=== PATIENT | male | born 1965 | race Caucasian/White ===

== ENCOUNTER 2017-08-11 11:19 | Emergency (ER) | payer OTHER ==
[2017-08-11 11:19] VITALS: BMI 33.9
[2017-08-11 11:46] VITALS: RESP 18
--- NOTE | 2017-08-11 12:17 | ED PDOC ---
Arrival/HPI - General Chief Complaint: Back Pain Time Seen by Provider: 08/11/17 12:02 Historian: Patient - History of Present Illness Narrative History of Present Illness (Text): 08/11/17 12:34 A 52 year old male, whose past medical history includes Diabetes (on Insulin), presents to the emergency department complaining of left sided neck pain, left shoulder and back pain for the past week, worsening the last 4 days. Reports pain worsens with movement or turning. 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 Denies any numbness in fingers or any other complaints at this time. PMD; Dr. Bryant Symptom Onset: Sudden Symptom Course: Unchanged Past Medical History - Provider Review Nursing Documentation Reviewed: Yes - Infectious Disease Hx of Infectious Diseases: None - Tetanus Immunization Tetanus Immunization: Unknown - Cardiac Hx Cardiac Disorders: Yes Hx Hypertension: Yes Other/Comment: 4 stents - Pulmonary Hx Respiratory Disorders: No - Neurological Hx Neurological Disorder: No - HEENT Hx HEENT Disorder: No - Renal Hx Renal Disorder: No - Endocrine/Metabolic Hx Endocrine Disorders: Yes Hx Diabetes Mellitus Type 2: Yes - Hematological/Oncological Hx Blood Disorders: No - Integumentary Hx Dermatological Disorder: No - Musculoskeletal/Rheumatological Hx Back Pain: Yes - Gastrointestinal Hx Gastrointestinal Disorders: No - Genitourinary/Gynecological Hx Genitourinary Disorders: No - Psychiatric Hx Psychophysiologic Disorder: Yes Hx Depression: Yes (H/O ,SUICIDAL X 1 H/O) Hx Substance Use: No - Surgical History Hx Cardiac Catheterization: Yes Hx Coronary Stent: Yes (x4) Hx Orthopedic Surgery: Yes (right thumb) - Anesthesia Hx Anesthesia: Yes Hx Anesthesia Reactions: No - Suicidal Assessment Feels Threatened In Home Enviroment: No Family/Social History - Physician Review Nursing Documentation Reviewed: Yes Family/Social History: No Known Family HX Smoking Status: Former Smoker Hx Alcohol Use: No Hx Substance Use: No Hx Substance Use Treatment: No Allergies/Home Meds Allergies/Adverse Reactions: Allergies No Known Allergies Allergy (Verified 08/11/17 11:46) Home Medications: Home Meds Medication Instructions Recorded Confirmed Insulin Degludec/Liraglutide 29 units SC HS 07/24/17 08/11/17 [Xultophy 100 Unit-3.6MG/ml Pen] Review of Systems - Physician Review All systems were reviewed & negative as marked: Yes - Review of Systems Constitutional: absent: Fevers Musculoskeletal: Back Pain, Neck Pain (left side), Other (left shoulder pain; no numbness in fingers) Physical Exam Vital Signs Reviewed: Yes Vital Signs Temp Pulse Resp BP Pulse Ox 08/11/17 12:15 98.0 F 86 18 148/94 H 98 08/11/17 11:41 97.6 F 90 18 153/107 H 95 Temperature: Afebrile Blood Pressure: Hypertensive Pulse: Regular Respiratory Rate: Normal Appearance: Positive for: Well-Appearing, Non-Toxic, Comfortable Pain Distress: Mild Mental Status: Positive for: Alert and Oriented X 3 - Systems Exam Head: Present: Atraumatic, Normocephalic Pupils: Present: PERRL Extroacular Muscles: Present: EOMI Conjunctiva: Present: Normal Mouth: Present: Moist Mucous Membranes Neck: Present: Normal Range of Motion Respiratory/Chest: Present: Clear to Auscultation, Good Air Exchange. No: Respiratory Distress, Accessory Muscle Use Cardiovascular: Present: Regular Rate and Rhythm, Normal S1, S2. No: Murmurs Abdomen: Present: Normal Bowel Sounds. No: Tenderness, Distention, Peritoneal Signs Back: Present: Other (diffuse tenderness over medial aspect of left scapula and paraspinal musculature, supraclavicular trapezius muscle on left) Upper Extremity: Present: Normal Inspection. No: Cyanosis, Edema Lower Extremity: Present: Normal Inspection. No: Edema Neurological: Present: GCS=15, CN II-XII Intact, Speech Normal Skin: Present: Warm, Dry, Normal Color. No: Rashes Psychiatric: Present: Alert, Oriented x 3, Normal Insight, Normal Concentration Medical Decision Making ED Course and Treatment: 08/11/17 12:23 Impression: A 52 year old male with back pain, left shoulder pain and left sided neck pain. Differential Diagnosis included but are not limited to: radiculopathy Plan: -- Valium, Toradol -- Reassess and disposition Prior Visits: Notes and results from previous visits were reviewed. Patient was last seen in the emergency department on 07/24/17 for evaluation of hyperglycemia. Progress Notes: On re-evaluation, patient feels better and is in no acute distress. I have discussed the results and plan with the patient, who expresses understanding. Patient in agreement with plan to be discharged home. Patient is stable for discharge. Patient was instructed to follow up with physician or return if symptoms worsen or new concerning symptoms arise. - Medication Orders Current Medication Orders: Discontinued Medications Diazepam (Valium) 5 mg PO ONCE ONE PRN Reason: Protocol Stop: 08/11/17 12:04 Last Admin: 08/11/17 12:16 Dose: 5 mg Ketorolac Tromethamine (Toradol) 60 mg IM STAT STA Stop: 08/11/17 12:03 Last Admin: 08/11/17 12:16 Dose: 60 mg MAR Pain Assessment Document 08/11/17 12:16 SE (Rec: 08/11/17 12:16 SE [id number]) Pain Reassessment Is this a pain reassessment? No Sleep Is patient sleeping during reassessment? No Presence of Pain Presence of Pain Yes Pain Scale Used Pain Scale Used Numeric IM Administration Charges Document 08/11/17 12:16 SE (Rec: 08/11/17 12:16 SE [id number]) Injection Site MAR Injection Site Right Vastus Lateralis Charges for Administration # of IM Administrations 1 - Scribe Statement The provider has reviewed the documentation as recorded by the Angelia Maynard Provider Scribe Attestation: All medical record entries made by the Orvilleibmehul were at my direction and personally dictated by me. I have reviewed the chart and agree that the record accurately reflects my personal performance of the history, physical exam, medical decision making, and the department course for this patient. I have also personally directed, reviewed, and agree with the discharge instructions and disposition. Disposition/Present on Arrival - Present on Arrival Any Indicators Present on Arrival: No History of DVT/PE: No History of Uncontrolled Diabetes: Yes Urinary Catheter: No History of Decub. Ulcer: No History Surgical Site Infection Following: None - Disposition Have Diagnosis and Disposition been Completed?: Yes Diagnosis: Cervical radiculopathy Disposition: HOME/ ROUTINE Disposition Time: 12:13 Patient Plan: Discharge Condition: GOOD Discharge Instructions (ExitCare): Cervical Radiculopathy (ED), Neck Exercises (GEN) Print Language: DANISH Prescriptions: Cyclobenzaprine [Flexeril] 10 mg PO TID 5 Days #15 tab Naproxen [Naprosyn] 500 mg PO BID #20 tablet Ref[place]: [place] [facility] [place] - Follow up with primary Forms: WORK NOTE
[2017-08-11 12:29] VITALS: BP 148/94; PULSE 86; TEMP 98; O2SAT 98
== END 2017-08-11 12:35 | disposition home or self-care (01) ==
LOC: ED 11:19
DX: M54.12 Radiculopathy, cervical region (principal)
CPT/HCPCS: 96372; 99283; J1885

== ENCOUNTER 2018-10-02 20:21 | Observation (INO) | payer OTHER ==
[2018-10-02 20:30] VITALS: BMI 38.6
[2018-10-02] MEDS ORDERED: Nitroglycerin 2% Ointment Foilpak UD TOP STA (20:45)
--- NOTE | 2018-10-02 20:54 | ED PDOC ---
Arrival/HPI - General Chief Complaint: Chest Pain Time Seen by Provider: 10/02/18 20:28 Historian: Patient - History of Present Illness Narrative History of Present Illness (Text): 10/02/18 20:53 53 year old male, whose past medical history includes hypertension, diabetes, and CAD with stents, presents to the emergency department as a transfer from the outpatient [facility], for further evaluation of chest discomfort. Patient states it started today, and states it is localized in his left arm and chest. Patient informs it is somewhat stabbing in nature. Patient received aspirin prior to arrival, and states he is feeling much better, with only minimal discomfort. Patient denies any shortness of breath, fevers, chills, headache, dizziness, abdominal pain, nausea, vomiting, or any other complaint. Time/Duration: Prior to Arrival, 24 hours Symptom Onset: Gradual Symptom Course: Improving Quality: Stabbing Activities at Onset: Light Past Medical History - Provider Review Nursing Documentation Reviewed: Yes - Infectious Disease Hx of Infectious Diseases: None - Tetanus Immunization Tetanus Immunization: Unknown - Cardiac Hx Cardiac Disorders: Yes Hx Hypertension: Yes Other/Comment: 4 stents - Pulmonary Hx Respiratory Disorders: No - Neurological Hx Neurological Disorder: No - HEENT Hx HEENT Disorder: No - Renal Hx Renal Disorder: No - Endocrine/Metabolic Hx Endocrine Disorders: Yes Hx Diabetes Mellitus Type 2: Yes - Hematological/Oncological Hx Blood Disorders: No - Integumentary Hx Dermatological Disorder: No - Musculoskeletal/Rheumatological Hx Back Pain: Yes - Gastrointestinal Hx Gastrointestinal Disorders: No - Genitourinary/Gynecological Hx Genitourinary Disorders: No - Psychiatric Hx Psychophysiologic Disorder: Yes Hx Depression: Yes (H/O ,SUICIDAL X 1 H/O) Hx Substance Use: No - Surgical History Hx Cardiac Catheterization: Yes Hx Coronary Stent: Yes (x4 (2011, 2014)) Hx Orthopedic Surgery: Yes (right thumb) - Anesthesia Hx Anesthesia: Yes Hx Anesthesia Reactions: No - Suicidal Assessment Feels Threatened In Home Enviroment: No Family/Social History - Physician Review Nursing Documentation Reviewed: Yes Family/Social History: No Known Family HX Smoking Status: Former Smoker Hx Alcohol Use: No Hx Substance Use: No Hx Substance Use Treatment: No Allergies/Home Meds Allergies/Adverse Reactions: Allergies No Known Allergies Allergy (Verified 10/02/18 20:40) Home Medications: Home Meds Medication Instructions Recorded Confirmed Insulin Degludec [Tresiba 1 unit SC DAILY 10/02/18 10/02/18 Flextouch U-100] Losartan/Hydrochlorothiazide 1 tab PO DAILY 10/02/18 10/02/18 [Losartan-Hctz 100-12.5 mg Tab] RX: Aspirin [Aspirin EC] 1 tab PO DAILY 10/02/18 10/02/18 RX: Atorvastatin [Lipitor] 1 tab PO HS 10/02/18 10/02/18 RX: Clopidogrel [Plavix] 1 tab PO DAILY 10/02/18 10/02/18 Review of Systems - Physician Review All systems were reviewed & negative as marked: Yes - Review of Systems Constitutional: absent: Fevers, Night Sweats Respiratory: absent: SOB Cardiovascular: Chest Pain (chest discomfort alleviated by aspirin given prior to arrival) Gastrointestinal: absent: Abdominal Pain, Nausea, Vomiting Neurological: absent: Headache, Dizziness Physical Exam Vital Signs Reviewed: Yes Vital Signs Temp Pulse Resp BP Pulse Ox 10/02/18 20:36 97.3 F L 88 18 138/88 96 Temperature: Hypothermic Blood Pressure: Normal Pulse: Regular Respiratory Rate: Normal Appearance: Positive for: Well-Appearing, Non-Toxic, Comfortable Pain Distress: None Mental Status: Positive for: Alert and Oriented X 3 - Systems Exam Head: Present: Atraumatic, Normocephalic Pupils: Present: PERRL Extroacular Muscles: Present: EOMI Conjunctiva: Present: Normal Mouth: Present: Moist Mucous Membranes Neck: Present: Normal Range of Motion Respiratory/Chest: Present: Clear to Auscultation, Good Air Exchange. No: Respiratory Distress, Accessory Muscle Use Cardiovascular: Present: Regular Rate and Rhythm, Normal S1, S2. No: Murmurs Abdomen: No: Tenderness, Distention, Peritoneal Signs Back: Present: Normal Inspection Upper Extremity: Present: Normal Inspection. No: Cyanosis, Edema Lower Extremity: Present: Normal Inspection. No: Edema Neurological: Present: GCS=15, CN II-XII Intact, Speech Normal Skin: Present: Warm, Dry, Normal Color. No: Rashes Psychiatric: Present: Alert, Oriented x 3, Normal Insight, Normal Concentration Medical Decision Making ED Course and Treatment: 10/02/18 21:00 Impression: 53 year old male presents with chest discomfort Plan: -- EKG -- CMP, CBC -- Chest X-ray -- Nitroglycerin -- US upper extremity -- Reassess and disposition Prior Visits: Notes and results from previous visits were reviewed. 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 - RAD Interpretation Radiology Orders: 10/02/18 20:31 CHEST PORTABLE [RAD] Stat 10/02/18 20:48 DUPLEX UPPER EXTRM VEIN LEFT [US] Stat - Medication Orders Current Medication Orders: Discontinued Medications Nitroglycerin (Nitro-Bid 2% Oint) 1 ea TOP ONCE STA Stop: 10/02/18 20:46 - Scribe Statement The provider has reviewed the documentation as recorded by the Scribe Placido Mancini Provider Scribe Attestation: All medical record entries made by the Scribe were at my direction and personally dictated by me. I have reviewed the chart and agree that the record accurately reflects my personal performance of the history, physical exam, medical decision making, and the department course for this patient. I have also personally directed, reviewed, and agree with the discharge instructions and disposition. Disposition/Present on Arrival - Present on Arrival Any Indicators Present on Arrival: No History of DVT/PE: No History of Uncontrolled Diabetes: Yes Urinary Catheter: No History of Decub. Ulcer: No History Surgical Site Infection Following: None - Disposition Have Diagnosis and Disposition been Completed?: Yes Diagnosis: Chest pain Disposition: HOSPITALIZED Disposition Time: 23:36 Patient Problems: Current Active Problems Problem Status Onset Chest pain Acute Condition: STABLE
[2018-10-02 21:05] LABS: ALB/GLOB RATIO 1.1 (1.1-1.8); ALBUMIN 3.6 g/dL (3.0-4.8); ALT/SGPT 28 U/L (7-56); AST/SGOT 26 U/L (17-59); BLOOD UREA NITROGEN 14 mg/dL (7-21); CALCIUM 9.1 mg/dL (8.4-10.5); GFR NON-AFRICAN AMERICAN > 60
[2018-10-02 21:16] LABS: TROPONIN I < 0.01 ng/mL
[2018-10-02 21:18] LABS: HEMOGLOBIN 13.3 g/dL (14.0-18.0); MEAN CELL VOLUME 82.7 fl (80.0-105.0); MEAN CORPUSCULAR HEMOGLOBIN 28.7 pg (25.0-35.0); MEAN CORPUSCULAR HGB CONC 34.7 g/dl (31.0-37.0); RBC 4.63 10^6/uL (3.5-6.1); RED CELL DISTRIBUTION WIDTH 13.1 % (11.5-14.5); WHITE BLOOD COUNT 6.6 10^3/uL (4.5-11.0)
[2018-10-02 21:22] LABS: INR 0.89; PARTIAL THROMBOPLASTIN TIME 24.1 Seconds (25.1-36.5); PROTHROMBIN TIME 10.1 SECONDS (9.4-12.5)
--- NOTE | 2018-10-03 01:44 | US ---
Date of service: 10/02/2018 PROCEDURE: Left Upper Extremity Venous Doppler HISTORY: r/o dvt COMPARISON: None available. TECHNIQUE: Left upper extremity deep veins, including the lower internal jugular, subclavian, axillary and brachial veins, were evaluated flow, compressibility and respiratory phasicity. FINDINGS: Normal flow, compressibility and respiratory phasicity was observed in the the left upper extremity deep veins. IMPRESSION: No evidence of deep venous thrombosis.
[2018-10-03 07:24] VITALS: BP 130/94; RESP 20; TEMP 97.8; O2SAT 97
[2018-10-03 09:51] LABS: B-TYPE NATRIURETIC PEPTIDE 41.7 pg/mL (0-450); TROPONIN I < 0.01 ng/mL
[2018-10-03] MEDS ORDERED: Non Formulary Medication (Losartan/Hydrochlorothiazide [Losartan-Hctz 100-12.5 Mg Tab] 1 T PO SCH (10:00)
[2018-10-03] MEDS ORDERED: INSULIN DEGLUDEC 1 UNIT SC SCH (10:00)
[2018-10-03] MEDS ORDERED: Aspirin 325 mg EC Tablets PO SCH (10:00)
[2018-10-03 10:28] VITALS: PULSE 85
--- NOTE | 2018-10-03 11:51 | RAD ---
HISTORY: chest pain COMPARISON: Chest x-ray performed 03/09/16 TECHNIQUE: Chest, one view. FINDINGS: Examination limited by habitus. LUNGS: No focal consolidation. Please note that chest x-ray has limited sensitivity for the detection of pulmonary masses. PLEURA: No significant pleural effusion identified. No definite pneumothorax . CARDIOVASCULAR: Heart size appears borderline enlarged. No significant atherosclerotic calcification present. OSSEOUS STRUCTURES: No acute osseous abnormality identified. VISUALIZED UPPER ABDOMEN: Unremarkable. OTHER FINDINGS: None. IMPRESSION: Borderline cardiomegaly. No focal consolidation.
--- NOTE | 2018-10-03 13:21 | RAD ---
Date of service: 10/03/2018 PROCEDURE: Left Wrist Radiographs. HISTORY: swelling COMPARISON: None. FINDINGS: BONES: Normal. No fracture. JOINTS: Normal. No dislocation. SOFT TISSUES: Normal. OTHER FINDINGS: None. IMPRESSION: Normal left wrist radiographs.
--- NOTE | 2018-10-03 14:00 | CON ---
DATE: 10/03/2018 CARDIOLOGY CONSULTATION HISTORY: The patient is a 53-year-old male, who presents with atypical chest discomfort. His symptoms were described as pleuritic in nature, increased with inspiration. PAST MEDICAL HISTORY: The patient's past medical history includes documented coronary artery disease with stents in the past. The patient suffers from hypertension, diabetes and hypercholesterolemia and is overweight. SOCIAL HISTORY: He denies smoking. REVIEW OF SYSTEMS: Fourteen-point review of systems is reviewed. No cardiac symptomatology is noted at this point. Ambulation on the floor. The patient has no cardiac symptoms. PHYSICAL EXAMINATION: VITAL SIGNS: Blood pressure is 130/94, heart rate is in the 80s. NECK: Negative JVD. LUNGS: Without rales. HEART: Heart rate S1, S2. EXTREMITIES: Without edema. EKG is within normal limits. LABORATORY DATA: Troponins are negative x1. Glucose is 293 with a hemoglobin of 13.3. IMPRESSION 1. Atypical chest pain. 2. No evidence for acute coronary syndrome. 3. History of documented coronary artery disease with stents in the past. 4. No evidence for acute coronary syndrome. 5. Diabetes mellitus. 6. Hypertension. 7. Hypercholesterolemia. PLAN: Given these findings, we will obtain one more troponin today. If negative, the patient can be discharged. We will arrange for an outpatient stress test later on in the week. I have discussed with the patient about the need for decreasing weight and decreased carb intake. A cardiac risk reduction program is necessary. Placido Robert MD
--- NOTE | 2018-10-03 18:28 | CARD ---
APPROVED REPORT Date of service: 10/02/2018 EKG Measurement Heart [id number] <Conclusion> Normal sinus rhythm Normal ECG
--- NOTE | 2018-10-03 19:10 | HP ---
DATE OF EXAM: 10/03/2018 HISTORY OF PRESENT ILLNESS: A 53-year-old [place] male with a history of CAD, status post stents x4; history of poorly controlled insulin-dependent diabetes mellitus; and peripheral neuropathy. The patient was in his usual state of health, may developed some left chest pain radiating to the left arm with swelling and discomfort in the left wrist and the patient came to the emergency room. The patient denied any fever, chills, nausea, vomiting, diarrhea, any palpitations, lightheadedness, or dizziness. He states that symptoms started approximately 24 hours prior to admission. The patient has a history of CAD, status post stents by Dr. Placido Robert seven years ago and recent catheterization was negative. 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 He has no history of arthritis. FAMILY HISTORY: Contributory only for heart disease and diabetes. SOCIAL HISTORY: The patient is a nonsmoker and nondrinker. He takes insulin and cardiac medications at home. REVIEW OF SYSTEMS: CONSTITUTIONAL Negative for nausea, vomiting, headache, lightheadedness, dizziness, or syncope. RESPIRATORY: Negative for cough, sputum production, shortness of breath, or hemoptysis. GASTROINTESTINAL: Negative for nausea, vomiting, or diarrhea. NEUROLOGICAL: Positive for pain in the lower extremities and feet and also in the left upper extremity. PHYSICAL EXAMINATION: GENERAL: Shows a well-developed, but obese [place] male in no apparent distress. HEENT: Essentially within normal limits. HEART: Regular sinus rhythm. No S3 or murmurs. CHEST: Clear to auscultation and percussion. ABDOMEN: Soft. MUSCULOSKELETAL: There is some swelling and tenderness on palpation on the left wrist and hand. There is decreased ability to completely close the left hand. There is no adenopathy in the left axilla, inferior or superior clavicular area. EXTREMITIES: Without cyanosis, clubbing, or edema. MEDICATIONS: He is on Lipitor, insulin, Plavix, losartan, and aspirin. LABORATORY DATA: So far unremarkable. Troponins are negative so far. Blood sugar was elevated on admission 264. Liver enzymes are within normal limits. First set of troponin was negative, but awaiting second troponin. PLAN: Plan is to rule out cardiac disease, ultrasound of the left upper extremity is negative for clot. Most likely, he will be discharged home for an outpatient cardiac catheterization. Angel Bryant MD [facility] # [id number]
== END 2018-10-03 12:14 | disposition home or self-care (01) ==
LOC: ED 20:21 → ERH 23:33 → 2RSO 10-03 01:37
PROVIDERS: ADMIT Internal Medicine; ATTEND Internal Medicine
DX: R07.89 Other chest pain (principal); I25.10 Atherosclerotic heart disease of native coronary artery without angina pectoris; E11.65 Type 2 diabetes mellitus with hyperglycemia; E11.42 Type 2 diabetes mellitus with diabetic polyneuropathy; Z79.4 Long term (current) use of insulin; I10 Essential (primary) hypertension; E78.00 Pure hypercholesterolemia, unspecified; Z95.5 Presence of coronary angioplasty implant and graft
CPT/HCPCS: 36415; 71045; 73110; 80053; 82550; 82948; 83615; 83880; 84484; 85027; 85610; 85651; 85730; 93005; 93971; 99285; G0378

== ENCOUNTER 2018-10-09 05:46 | Outpatient (CLI) | payer OTHER | END 2018-10-09 05:47 | disposition home or self-care (01) | LOC: CARDIO 05:46 | DX: R07.9 Chest pain, unspecified (principal) ==